=== PATIENT | male | born 1985 | race Caucasian/White ===

== ENCOUNTER 2016-11-29 11:21 | Emergency (ER) | payer OTHER ==
--- NOTE | ~2016-11-29 | ER ---
PATIENT'S NAME: NEERAJ KHAN [facility] AGE: 31 Y [address] ROOM: [place] [address] LOCATION: [facility] ADMIT DATE: 11/29/2016 ER/Outpatient Report DISCHARGE DATE: 11/29/2016 FAMILY PHYSICIAN: PHYSICIAN, NO ATTENDING PHYSICIAN: Og Brambila TIME SEEN: 12 o'clock. HISTORY OF PRESENT ILLNESS: The patient is a 31-year-old male who said he was wrestling with his brother when he was kicked just below his left knee, also fell and hit his chin on the floor which caused a laceration to the point of his chin. The patient has been able to bear weight on his leg without any significant pain, but he did notice some swelling directly after the injury occurred. ALLERGIES: NONE. HOME MEDICATIONS: Include loratadine. PAST MEDICAL HISTORY: Includes some environmental allergies. PAST SURGICAL HISTORY: Eyes. SOCIAL HISTORY: Nonsmoker. Alcohol 2 to 3 times a week. REVIEW OF SYSTEMS: HEAD AND EENT: Denied any headache or neck pain. RESPIRATORY: Negative. CARDIOVASCULAR: Negative. MUSCULOSKELETAL: Includes some swelling just below his left knee on the medial side. PHYSICAL EXAMINATION: VITAL SIGNS: Reviewed. GENERAL: The patient is alert, cooperative. HEENT: On exam of his chin, there is a horizontal 2 cm laceration. EXTREMITIES: Exam of his left knee shows some bruising and swelling on the medial thigh just below his left knee. The knee itself appears stable. PATIENT'S NAME: NEERAJ KHAN [facility] AGE: 31 Y [address] ROOM: [place] [address] LOCATION: [facility] ADMIT DATE: 11/29/2016 ER/Outpatient Report DISCHARGE DATE: 11/29/2016 FAMILY PHYSICIAN: PHYSICIAN, NO ATTENDING PHYSICIAN: Og Brambila LABORATORY AND X-RAY DATA: X-rays obtained, showed no fractures. ASSESSMENT: 1. Contusion just below his left knee on the medial side. 2. A 2 cm chin laceration. PLAN OF TREATMENT: The laceration was anesthetized with 1% Xylocaine. It was irrigated and cleansed with normal saline. 5-0 Ethilon interrupted sutures were placed x5. Topical antibiotic ointment applied. His tetanus was current. The patient advised in wound cares and recommend the sutures to be removed in about 4 to 5 days. Otherwise, for the contused thigh, recommend the use of ice today. Follow up if he has concerns. FENG ALFARO FOR MD VIOLETTA BRUNSON/modl /[id number] d: 11/29/16 1809 t: 12/09/16 1056, OUTPATIENT REPORT
== END 2016-11-29 12:55 | disposition disaster alternative care site (69) ==
LOC: GACC 11:21
PROC: 0HQ1XZZ Repair Face Skin, External Approach (ICD-10-PCS; principal; 2016-11-29)
DX: S01.81XA Laceration without foreign body of other part of head, initial encounter (principal); S80.12XA Contusion of left lower leg, initial encounter; Z79.899 Other long term (current) drug therapy; W13.3XXA Fall through floor, initial encounter; Y93.72 Activity, wrestling; Y99.8 Other external cause status